=== PATIENT | male | born 1950 | race Caucasian/White ===

== ENCOUNTER 2021-04-06 17:33 | Emergency (ER) | payer MEDICARE, OTHER ==
[2021-04-06 17:41] VITALS: TEMP 98.2
--- NOTE | 2021-04-06 18:09 | ED ---
General Adult HPI - General Chief complaint: Skin/Abscess/Foreign Body Stated complaint: Rash, r eye pain Time Seen by Provider: 04/06/21 17:56 Source: patient Mode of arrival: ambulatory Limitations: no limitations - History of Present Illness Initial comments: Dictation was produced using [employer] dictation software. please excuse any grammatical, word or spelling errors. 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 He states that the day after he was having muscle aches, night sweats. Denies any fevers. Patient has no known medical problems. States that also the last couple days his umbilical hernia got bigger. He is also worried that he had 4 large bowel movements consecutively all at one time. He has been staying in a motel that he is concerned is being treated with insecticides. Patient denies any abdominal pain. He does have pain where his hernias. No nausea or vomiting. Does feel generally weak. The ROS documented in this emergency department record has been reviewed and confirmed by me. Those systems with pertinent positive or negative responses have been documented in the HPI. All other systems are other negative and/or noncontributory. PHYSICAL EXAM: General Impression: Alert and oriented x3, not in acute distress HEENT: Normocephalic atraumatic, extra-ocular movements intact, pupils equal and reactive to light bilaterally, mucous membranes moist. Cardiovascular: Heart regular rate and rhythm Chest: Able to complete full sentences, no retractions, no tachypnea, slight auscultation bilaterally Abdomen: abdomen soft, non-tender, non-distended, no organomegaly Musculoskeletal: Pulses present and equal in all extremities, no peripheral edema Motor: no focal deficits noted Neurological: CN II-XII grossly intact, no focal motor or sensory deficits noted Skin: Intact with no visualized rashes, non-erythematous dermatitic rash to the medial ankles bilaterally, no mucosal rashes, no rash to the palms and soles Psych: Normal affect and mood ED course: 71-year-old male with multiple complaints. States that he is here today for rash to his bilateral lower extremities, feeling of generalized weakness, episodic night sweats. Vital signs upon arrival are within acceptable limits. Patient is afebrile. Patient well-appearing at bedside. Laboratory evaluation obtained. CBC, metabolic panel, for panel virus PCR is negative. Chest x-ray is nonacute. Abdominal x-rays nonobstructive. Patient observed in the emergency department for approximately 2 hours and 30 minutes finally stable medical condition. He is reevaluated at 8:00 PM. Patient will be discharged told to follow-up with primary care physician EKG interpretation: Ventricular rate 70, normal sinus rhythm,. 124, care is 92, QTc 449. No OK prolongation, no QTC prolongation, no ST or T-wave changes noted. Overall, this EKG is unremarkable - Related Data Home Medications Medication Instructions Recorded Confirmed Naproxen Sodium [Aleve] 220 mg PO BID PRN 08/11/16 08/11/16 Previous Rx's Medication Instructions Recorded Albuterol Inhaler (Mhu) [Ventolin 2 puff INHALATION Q4HR PRN #1 08/11/16 Hfa Inhaler (Mhu)] inhaler Butalb/Acetaminophen/Caffeine 1 - 2 cap PO Q4HR #16 cap 08/11/16 [Fioricet 50-300-40 mg Capsule] Allergies Allergy/AdvReac Type Severity Reaction Status Date / Time No Known Allergies Allergy Verified 08/11/16 13:33 Review of Systems ROS Statement: Those systems with pertinent positive or pertinent negative responses have been documented in the HPI. ROS Other: All systems not noted in ROS Statement are negative. Past Medical History Past Medical History: No Reported History History of Any Multi-Drug Resistant Organisms: None Reported Past Surgical History: No Surgical Hx Reported Past Psychological History: No Psychological Hx Reported Smoking Status: Current every day smoker Past Alcohol Use History: None Reported Past Drug Use History: None Reported General Exam Limitations: no limitations Course Vital Signs 04/06/21 17:38 Temperature 98.2 F Pulse Rate 89 Respiratory 18 Rate Blood Pressure 109/74 O2 Sat by Pulse 99 Oximetry Medical Decision Making - Lab Data Result diagrams: 04/06/21 18:00 04/06/21 18:00 Lab Results 04/06/21 04/06/21 04/06/21 Range/Units 18:00 18:00 18:00 WBC 8.8 (3.8-10.6) k/uL RBC 4.05 L (4.30-5.90) m/uL Hgb 14.0 (13.0-17.5) gm/dL Hct 42.0 (39.0-53.0) % MCV 103.6 H (80.0-100.0) fL MCH 34.7 (25.0-35.0) pg MCHC 33.4 (31.0-37.0) g/dL RDW 12.9 (11.5-15.5) % Plt Count 294 (150-450) k/uL MPV 8.5 Neutrophils % 68 % Lymphocytes % 18 % Monocytes % 7 % Eosinophils % 2 % Basophils % 1 % Neutrophils # 6.0 (1.3-7.7) k/uL Lymphocytes # 1.6 (1.0-4.8) k/uL Monocytes # 0.6 (0-1.0) k/uL Eosinophils # 0.2 (0-0.7) k/uL Basophils # 0.1 (0-0.2) k/uL Macrocytosis Slight Sodium 135 L (137-145) mmol/L Potassium 4.2 (3.5-5.1) mmol/L Chloride 101 (98-107) mmol/L Carbon Dioxide 27 (22-30) mmol/L Anion Gap 7 mmol/L BUN 20 (9-20) mg/dL Creatinine 0.89 (0.66-1.25) mg/dL Est GFR (CKD-EPI)AfAm >90 (>60 ml/min/1.73 sqM) Est GFR (CKD-EPI)NonAf 86 (>60 ml/min/1.73 sqM) Glucose 105 H (74-99) mg/dL Calcium 8.7 (8.4-10.2) mg/dL Creatine Kinase 54 L (55-170) U/L NT-Pro-B Natriuret Pep 120 pg/mL Influenza Type A (PCR) (Not Detectd) Influenza Type B (PCR) (Not Detectd) RSV (PCR) (Not Detectd) SARS-CoV-2 (PCR) (Not Detectd) 04/06/21 Range/Units 19:02 WBC (3.8-10.6) k/uL RBC (4.30-5.90) m/uL Hgb (13.0-17.5) gm/dL Hct (39.0-53.0) % MCV (80.0-100.0) fL MCH (25.0-35.0) pg MCHC (31.0-37.0) g/dL RDW (11.5-15.5) % Plt Count (150-450) k/uL MPV Neutrophils % % Lymphocytes % % Monocytes % % Eosinophils % % Basophils % % Neutrophils # (1.3-7.7) k/uL Lymphocytes # (1.0-4.8) k/uL Monocytes # (0-1.0) k/uL Eosinophils # (0-0.7) k/uL Basophils # (0-0.2) k/uL Macrocytosis Sodium (137-145) mmol/L Potassium (3.5-5.1) mmol/L Chloride (98-107) mmol/L Carbon Dioxide (22-30) mmol/L Anion Gap mmol/L BUN (9-20) mg/dL Creatinine (0.66-1.25) mg/dL Est GFR (CKD-EPI)AfAm (>60 ml/min/1.73 sqM) Est GFR (CKD-EPI)NonAf (>60 ml/min/1.73 sqM) Glucose (74-99) mg/dL Calcium (8.4-10.2) mg/dL Creatine Kinase (55-170) U/L NT-Pro-B Natriuret Pep pg/mL Influenza Type A (PCR) Not Detected (Not Detectd) Influenza Type B (PCR) Not Detected (Not Detectd) RSV (PCR) Not Detected (Not Detectd) SARS-CoV-2 (PCR) Not Detected (Not Detectd) Disposition Clinical Impression: Weakness Disposition: HOME SELF-CARE Condition: Good Instructions (If sedation given, give patient instructions): Acute Rash (ED) Is patient prescribed a controlled substance at d/c from ED?: No Referrals: Eladia Malave MD [STAFF PHYSICIAN] - 1-2 days
--- NOTE | 2021-04-06 18:54 | XR ---
EXAMINATION TYPE: XR abdomen acute w cxr DATE OF EXAM: 04/06/2021 COMPARISON: Chest x-ray 08/11/2016 HISTORY: Rash. Night sweats. TECHNIQUE: 4 views FINDINGS: Heart and mediastinum are normal. Lungs are clear. Diaphragm is normal. The bony thorax is intact. The bowel gas pattern is normal. There is no sign of intestinal obstruction or pneumoperitone um. Fecal pattern is normal. There are no pathologic calcifications over the kidneys. IMPRESSION: Normal chest. Nonacute abdomen. No change in the chest compared to old exam.
[2021-04-06 18:55] LABS: African American GFR (CKD) >90 (>60 ml/min/1.73 sqM); Anion Gap 7 mmol/L; Blood Urea Nitrogen 20 mg/dL (9-20); Calcium 8.7 mg/dL (8.4-10.2); Carbon Dioxide 27 mmol/L (22-30); Chloride 101 mmol/L (98-107); Creatine Kinase 54 U/L (55-170); Glucose 105 mg/dL (74-99); Non-African American GFR(CKD) 86 (>60 ml/min/1.73 sqM); Potassium 4.2 mmol/L (3.5-5.1); Sodium 135 mmol/L (137-145)
[2021-04-06 19:01] LABS: Basophils # (A) 0.1 k/uL (0-0.2); Basophils % (A) 1 %; Eosinophils # (A) 0.2 k/uL (0-0.7); Eosinophils % (A) 2 %; Lymphocytes # (A) 1.6 k/uL (1.0-4.8); Lymphocytes % (A) 18 %; MCH 34.7 pg (25.0-35.0); MCHC 33.4 g/dL (31.0-37.0); MCV 103.6 fL (80.0-100.0); Macrocytosis Slight; Mean Platelet Volume 8.5; Monocytes # (A) 0.6 k/uL (0-1.0); Monocytes % (A) 7 %; Neutrophils % (A) 68 %; Platelet Count 294 k/uL (150-450); RBC 4.05 m/uL (4.30-5.90); RDW 12.9 % (11.5-15.5); WBC 8.8 k/uL (3.8-10.6)
[2021-04-06 20:15] VITALS: BP 112/81; PULSE 85; RESP 16
== END 2021-04-06 20:12 | disposition home or self-care (01) ==
LOC: EC 17:33
DX: R53.1 Weakness (principal); R21 Rash and other nonspecific skin eruption; H57.11 Ocular pain, right eye; R61 Generalized hyperhidrosis; M79.10 Myalgia, unspecified site; F17.200 Nicotine dependence, unspecified, uncomplicated; Z20.822 Contact with and (suspected) exposure to COVID-19
CPT/HCPCS: 36415; 74022; 80048; 82550; 83880; 85025; 87636; 93005; 99285

== ENCOUNTER 2022-04-05 17:02 | Inpatient (IN) | payer OTHER, MEDICARE ==
[2022-04-05 17:11] LABS: Glucose,Whole Blood 120 mg/dL (70-110)
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
[2022-04-05] MEDS ORDERED: ONDANSETRON 4 MG/2 ML VIAL IVP STA (17:41)
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
[2022-04-05 17:51] LABS: Basophils # (A) 0.1 k/uL (0-0.2); Basophils % (A) 1 %; Eosinophils # (A) 0.3 k/uL (0-0.7); Eosinophils % (A) 3 %; HCT 40.9 % (39.0-53.0); HGB 13.7 gm/dL (13.0-17.5); Lymphocytes # (A) 2.8 k/uL (1.0-4.8); Lymphocytes % (A) 37 %; MCH 34.5 pg (25.0-35.0); MCHC 33.4 g/dL (31.0-37.0); MCV 103.4 fL (80.0-100.0); Macrocytosis Slight; Mean Platelet Volume 8.3; Monocytes # (A) 0.5 k/uL (0-1.0); Monocytes % (A) 6 %; Neutrophils # (A) 3.6 k/uL (1.3-7.7); Neutrophils % (A) 49 %; Platelet Count 279 k/uL (150-450); RBC 3.96 m/uL (4.30-5.90); RDW 12.3 % (11.5-15.5); WBC 7.5 k/uL (3.8-10.6)
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
[2022-04-05 18:02] LABS: ALT 12 U/L (4-49); AST 23 U/L (17-59); African American GFR (CKD) >90 (>60 ml/min/1.73 sqM); Albumin 3.7 g/dL (3.5-5.0); Alkaline Phosphatase 60 U/L (38-126); Anion Gap 7 mmol/L; Blood Urea Nitrogen 11 mg/dL (9-20); Calcium 8.6 mg/dL (8.4-10.2); Carbon Dioxide 24 mmol/L (22-30); Chloride 104 mmol/L (98-107); Glucose 116 mg/dL (74-99); Non-African American GFR(CKD) 88 (>60 ml/min/1.73 sqM); Sodium 135 mmol/L (137-145); Total Bilirubin 0.4 mg/dL (0.2-1.3); Total Protein 6.4 g/dL (6.3-8.2)
[2022-04-05 18:05] LABS: Alcohol 216 mg/dL
[2022-04-05] MEDS ORDERED: LIDOCAINE 1% INJ 10MG/ML (5 ML VIAL-PF) SQ ONE ×2 (18:10→18:11)
[2022-04-05 18:13] LABS: INR 0.9 (<1.2); Prothrombin Time 10.1 sec (9.0-12.0)
[2022-04-05 18:19] LABS: Partial Thromboplastin Time 19.6 sec (22.0-30.0)
[2022-04-05] MEDS ORDERED: ACETAMINOPHEN TAB 325 MG TAB PO PRN (18:47)
[2022-04-05] MEDS ORDERED: NALOXONE 0.4 MG/ML 1 ML VIAL IV PRN (18:47)
[2022-04-05] MEDS ORDERED: ONDANSETRON 4 MG/2 ML VIAL IVP PRN (18:47)
[2022-04-05] MEDS: DIPH,PERTUS(ACELL)TETVAC-LF 0.5 ML VIAL IM ONE ×2 (20:12→20:16)
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
[2022-04-05] MEDS: HYDROcodone/APAP 5-325MG 1 EACH TAB PO PRN (22:00)
[2022-04-05] MEDS: SODIUM CHLORIDE 0.9% 1,000 ML IV SCH (23:26)
[2022-04-06] MEDS: HEPARIN SODIUM,PORCINE/PF 5,000 UNIT/0.5 ML SYRINGE SQ SCH ×3 (00:45→17:08)
[2022-04-06] MEDS: HYDROcodone/APAP 5-325MG 1 EACH TAB PO PRN ×4 (02:28→21:35)
[2022-04-06] MEDS: SODIUM CHLORIDE 0.9% 1,000 ML IV SCH ×2 (08:15→21:41)
[2022-04-06] MEDS: FAMOTIDINE 20 MG/2 ML VIAL IV SCH ×2 (08:16→21:42)
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
[2022-04-06] MEDS: THIAMINE 100 MG TAB PO SCH (10:57)
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
[2022-04-06 12:28] LABS: Appearance,Urine Clear (Clear); Bilirubin,Urine Negative (Negative); Blood,Urine Small (Negative); Color,Urine Yellow; Glucose,Urine (UA) Negative (Negative); Ketones,Urine Negative (Negative); Leukocyte Esterase,Urine Negative (Negative); Nitrite,Urine Negative (Negative); Protein,Urine Negative (Negative); RBC,Urine 5 /hpf (0-5); Specific Gravity,Urine 1.018 (1.001-1.035); WBC,Urine 1 /hpf (0-5)
[2022-04-06 12:33] LABS: Amphetamine Screen,Urine Not Detected (NotDetected); Barbiturate Screen,Urine Not Detected (NotDetected); Benzodiazepines Screen,Urine Not Detected (NotDetected); Cocaine Screen,Urine Not Detected (NotDetected); Methadone Screen, Urine Not Detected (NotDetected); Opiate Screen,Urine Detected (NotDetected); Oxycodone Screen, Urine Not Detected (NotDetected); Phencyclidine Screen,Urine Not Detected (NotDetected); Tricyclic Antidepressant,Urine Not Detected (NotDetected); Urn Cannabinoid Scrn Not Detected (NotDetected)
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
--- NOTE | 2022-04-06 13:52 | P.PN ---
Progress Note - Text Progress Note Date: 04/06/22 Addendum to consult note: The case was discussed with Dr. Larios. An MRI is recommended for evaluation of the cervical soft tissues. MRI has been ordered by neurology. I will keep the patient on bed rest until after MRI. He was not tolerating the hard collar very well. He was placed in a soft collar which I have instructed nurses to make sure it is fitting snug. The family has been advised that it may be recommended that he go back into a hard collar pending MRI results.
[2022-04-06] MEDS: BUDESONIDE 0.5 MG/2 ML NEBU INHALATION SCH (20:54)
[2022-04-07] MEDS: HEPARIN SODIUM,PORCINE/PF 5,000 UNIT/0.5 ML SYRINGE SQ SCH ×4 (00:50→23:20)
[2022-04-07] MEDS: HYDROcodone/APAP 5-325MG 1 EACH TAB PO PRN ×4 (01:40→20:30)
[2022-04-07] MEDS: BUDESONIDE 0.5 MG/2 ML NEBU INHALATION SCH ×2 (07:14→21:18)
[2022-04-07] MEDS: IPRATROPIUM-ALBUTEROL 3 ML NEB INHALATION PRN ×3 (07:14→21:18)
[2022-04-07] MEDS: SODIUM CHLORIDE 0.9% 1,000 ML IV SCH (08:59)
[2022-04-07] MEDS: FAMOTIDINE 20 MG/2 ML VIAL IV SCH ×2 (08:59→20:31)
[2022-04-07] MEDS: THIAMINE 100 MG TAB PO SCH (08:59)
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
[2022-04-07 10:19] LABS: African American GFR (CKD) >90 (>60 ml/min/1.73 sqM); Anion Gap -2 mmol/L; Blood Urea Nitrogen 9 mg/dL (9-20); Calcium 7.7 mg/dL (8.4-10.2); Carbon Dioxide 32 mmol/L (22-30); Chloride 106 mmol/L (98-107); Glucose 94 mg/dL (74-99); Non-African American GFR(CKD) >90 (>60 ml/min/1.73 sqM); Potassium 4.5 mmol/L (3.5-5.1); Sodium 136 mmol/L (137-145)
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
[2022-04-07] MEDS ORDERED: DOCUSATE 100 MG CAP PO PRN (13:25)
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
[2022-04-07] MEDS ORDERED: LACTULOSE 20 GM/30 ML CUP PO ONE (13:45)
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
[2022-04-07] MEDS: MIRTAZAPINE 15 MG TAB PO SCH (20:29)
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
[2022-04-08] MEDS: SODIUM CHLORIDE 0.9% 1,000 ML IV SCH ×2 (02:02→14:25)
[2022-04-08] MEDS: BUDESONIDE 0.5 MG/2 ML NEBU INHALATION SCH ×2 (07:43→19:16)
[2022-04-08] MEDS: IPRATROPIUM-ALBUTEROL 3 ML NEB INHALATION PRN ×3 (07:43→19:16)
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
[2022-04-08] MEDS ORDERED: CYANOCOBALAMIN 1,000 MCG/ML 1 ML VIAL IM ONE (08:00)
[2022-04-08] MEDS: THIAMINE 100 MG TAB PO SCH (08:02)
[2022-04-08] MEDS: HYDROcodone/APAP 5-325MG 1 EACH TAB PO PRN ×3 (08:02→21:16)
[2022-04-08] MEDS: HEPARIN SODIUM,PORCINE/PF 5,000 UNIT/0.5 ML SYRINGE SQ SCH ×3 (08:03→23:22)
[2022-04-08] MEDS: FOLIC ACID 1 MG TAB PO SCH (08:03)
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
[2022-04-08] MEDS: FAMOTIDINE 20 MG/2 ML VIAL IV SCH (09:39)
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
[2022-04-08] MEDS: CEPHALEXIN 500 MG CAP PO SCH ×2 (16:06→21:08)
[2022-04-08] MEDS: FAMOTIDINE 20 MG TAB PO SCH (21:07)
[2022-04-08] MEDS: MIRTAZAPINE 15 MG TAB PO SCH (21:08)
[2022-04-09] MEDS: SODIUM CHLORIDE 0.9% 1,000 ML IV SCH (05:54)
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
[2022-04-09] MEDS: HYDROcodone/APAP 5-325MG 1 EACH TAB PO PRN (05:57)
[2022-04-09 08:07] VITALS: BP 152/80; PULSE 85; RESP 17; TEMP 98.2
[2022-04-09] MEDS: BUDESONIDE 0.5 MG/2 ML NEBU INHALATION SCH (08:13)
[2022-04-09] MEDS: FAMOTIDINE 20 MG TAB PO SCH (08:46)
[2022-04-09] MEDS: HEPARIN SODIUM,PORCINE/PF 5,000 UNIT/0.5 ML SYRINGE SQ SCH (08:46)
[2022-04-09] MEDS: CEPHALEXIN 500 MG CAP PO SCH (08:46)
[2022-04-09] MEDS: THIAMINE 100 MG TAB PO SCH (08:46)
[2022-04-09] MEDS: FOLIC ACID 1 MG TAB PO SCH (08:46)
[2022-04-09] MEDS ORDERED: CYANOCOBALAMIN 500 MCG TAB PO SCH (09:00)
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
--- NOTE | 2022-04-10 19:01 | P.PN ---
Progress Note - Text Progress Note Date: 04/09/22 Interval History: Patient was seen in follow-up for psychiatry consult. He was found sitting up in bed with physical therapy at bedside. On assessment, he was directable and agreeable to speak with commercial lines underwriter. At this time, he denies any suicidal or homical ideations, intent or plan. Patient denies any auditory, visual hallucinations and denies any paranoia or delusions. Patient denies any side effects from the Remeron. He reports good mood, sleep and appetite. Vitals reviewed and are stable. No signs or symptoms of alcohol withdrawal. Mental Status Exam: General Appearance: Patient appears to be stated age is alert, is disheveled, wearing cervical collar, has obvious scalp laceration, good eye contact. Behavior: Patient is calmly sitting in bed without any agitated behavior. Speech: Patient's speech is fluent and non-pressured. Mood/Affect: Patient reports their mood is "good", affect is constricted Suicidality/Homicidality: Patient denies having any suicidal or homicidal ideation intent or plan. Perceptions: Patient denies any visual hallucinations and denies any auditory hallucinations. Though content/process: There is no evidence of any delusional thought content and thought process is linear and goal-directed. Memory and concentration: AOX3, grossly intact for the purposes of this session. Judgment and insight: Fair, poor in regards to alcohol use Assessment: Major depressive disorder, moderate Alcohol use disorder Tobacco use disorder Plan: -At this time patient DOES NOT meet criteria for inpatient psychiatric admission. 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 -Would recommend the following medication changes/additions: Continue Remeron 7.5 mg QHS for depression/sleep/appetite. He will need to follow-up with psychiatrist or PCP to manage the Remeron. He states he does not currently have a PCP and needs a new one. -chemical plant worker to provide patient with outpatient mental health/psychiatry resources for appropriate follow up upon discharge. He will also need a new PCP. -Toxicology Supervisor spoke with patient about substance abuse and the harmful effects on medical and mental health, patient verbally understood and agreed. -chemical plant worker to provide patient substance use treatment resources including AA/NA meetings in the community. -chemical plant worker to provide patient with access line number to call for inpatient substance rehab if patient decides to pursue this. -Psychiatry will sign off at this time. -Please contact with any questions.
== END 2022-04-09 15:50 | disposition home health service (06) | DRG 89 ==
LOC: EC 17:02 → 4SSUR 18:48 → OBSVTOIN 04-09 08:52
PROVIDERS: ADMIT Surgery; ATTEND Surgery
PROC: 0HQ0XZZ Repair Scalp Skin, External Approach (ICD-10-PCS; principal; 2022-04-05)
DX: S06.0X9A Concussion with loss of consciousness of unspecified duration, initial encounter (principal); F32.1 Major depressive disorder, single episode, moderate; M50.023 Cervical disc disorder at C6-C7 level with myelopathy; V47.5XXA Car driver injured in collision with fixed or stationary object in traffic accident, initial encounter; W22.09XA Striking against other stationary object, initial encounter; Y90.7 Blood alcohol level of 200-239 mg/100 ml; R41.3 Other amnesia; F10.129 Alcohol abuse with intoxication, unspecified; M19.90 Unspecified osteoarthritis, unspecified site; M50.123 Cervical disc disorder at C6-C7 level with radiculopathy; M48.02 Spinal stenosis, cervical region; N32.9 Bladder disorder, unspecified; K21.9 Gastro-esophageal reflux disease without esophagitis; M25.78 Osteophyte, vertebrae; J44.9 Chronic obstructive pulmonary disease, unspecified; G31.9 Degenerative disease of nervous system, unspecified; S01.01XA Laceration without foreign body of scalp, initial encounter; Y92.410 Unspecified street and highway as the place of occurrence of the external cause; Z28.21 Immunization not carried out because of patient refusal; Z63.5 Disruption of family by separation and divorce
CPT/HCPCS: 12004; 36415; 70450; 71045; 71260; 72125; 72141; 72170; 74177; 80048; 80053; 80306; 80320; 81001; 82607; 85025; 85610; 85730; 86850; 86900; 86901; 90715; 93005; 94640; 94760; 96365; 96375; 99291

== ENCOUNTER → 2023-08-06 | Outpatient (CLI) | payer MEDICARE, OTHER ==
[2023-08-06 13:53] LABS: African American GFR (CKD) >90 (>60 ml/min/1.73 sqM); Blood Urea Nitrogen 17 mg/dL (9-20); Non-African American GFR(CKD) 87 (>60 ml/min/1.73 sqM)
--- NOTE | 2023-08-07 10:54 | CT ---
EXAMINATION TYPE: CT urogram wo/w con DATE OF EXAM: 08/06/2023 COMPARISON: 04/05/2022 HISTORY: h/o bladder CA f/u CT DLP: 4088 mGycm CONTRAST: Performed and with IV Contrast, patient injected with 100 mL of Isovue 370. CT Urography was performed with unenhanced followed by enhanced images of the kidneys, ureters and ur inary bladder. Delayed images were obtained. 3d reconstruction was performed at a separate work sta tion. FINDINGS: KIDNEYS/BLADDER: No hydronephrosis. No nephrolithiasis. Renal cystic changes are stable. No solid r enal mass is appreciated. Posterior wall wall thickening of the urinary bladder. Correlate for malign cornell. No obvious mass lesion. LUNG BASES-: No visible nodule. No infiltrate. LIVER/GB: No calcified gallstones. No space occupying hepatic lesion. Biliary tree is of normal ca liber. PANCREAS: No inflammation. No distinct mass. SPLEEN: No splenic enlargement. No lesion seen. ADRENALS: No nodule. No thickening. BOWEL: Normal appendix. Normal bowel caliber. No inflammation. GENITAL ORGANS: Prostate gland enlargement. LYMPH NODES: No greater than 1cm abdominal or pelvic lymph nodes are appreciated. AORTA: No significant abnormality. OSSEOUS STRUCTURES: No significant abnormality is seen. OTHER: Fat-containing umbilical hernia. IMPRESSION: 1. Wall thickening posterior urinary bladder wall. Underlying malignancy not excluded. Direct visuali zation recommended.
== END | disposition home or self-care (01) ==
LOC: RADCTMAIN 13:11
PROVIDERS: ATTEND Surgery
DX: C67.9 Malignant neoplasm of bladder, unspecified (principal); N32.89 Other specified disorders of bladder
CPT/HCPCS: 82565; 84520; 74178; 74400; Q9967